=== PATIENT | female | born 1980 | race Two or more races ===

== ENCOUNTER 2023-01-18 09:04 | Inpatient (IN) | payer BC ==
[~2023-01-18] VITALS: Ht 160 cm; Wt 96.2 kg
[~2023-01-18 09:04] MED LIST: PRENATAL + DHA1 EAC1 PO
[2023-01-18 13:23] LABS: RDW 15.6 (10.5-15.0)
[2023-01-18 13:26] LABS: HEMOGLOBIN 10.9 g/dL (12.0-18.0); MCH 28.6 (27-36); MCHC 32.8 g/dl (30-36); MCV 87.1 fl (81-99); RBC 3.8 M/ul (4.3-5.7)
[2023-01-18 14:00] LABS: ABO O; ANTIBODY SCREEN NEGATIVE; RH POSITIVE
[2023-01-18 14:32] VITALS: BP 133/67
[2023-01-18 14:35] LABS: INFLUENZA B NAA NEGATIVE (NEGATIVE); RESPIRATORY SYNCYTIAL VIR NAA NEGATIVE (NEGATIVE)
--- NOTE | 2023-01-18 18:10 | PR ---
[facility] [address] [place], [place] [address] Signed Progress Notes IP Datetime Report Generated by CPN: 01/18/2023 18:09 PROGRESS NOTES: [id number] Impression: Normal Progression of Labor Procedures: Artificial ROM; Sterile Vag Exam Plan: Continue Present Management VITAL SIGNS: [id number] Vital Signs: Reviewed; Within Normal Limits EXAM: [id number] Dilatation: 4.0 Effacement: 70 Contractions: q 5 min, irreg MEMBRANES: [id number] Comments: Still comfortable but good change in her cervix. status has been very reassuring though baseline quite high at this time. Will continue close observation. FETUS A: [id number] FHR Baseline: 145 Variability: Moderate 6-25bpm Accelerations: 15X15 Decelerations: None FHR Category: Category II Presentation: Vertex FETUS B: [id number] Signing Physician: Magui Jurado MD Copies: ~ *Electronically Signed* 01/18/23 1809 MAGUI JURADO MD PATIENT NAME: ESTEFANY KELLY PROGRESS NOTE DATE OF : 80 PHYSICIAN: MAGUI JURAOD MD RPT #: [id number] REPORT IS CONFIDENTIAL AND NOT TO BE RELEASED WITHOUT AUTHORIZATION
[2023-01-18 20:28] LABS: AMPHETAMINES, URINE NEGATIVE (NEGATIVE); BARBITURATES, URINE NEGATIVE (NEGATIVE); BENZODIAZEPINE, URINE NEGATIVE (NEGATIVE); BUPRENORPHINE, URINE NEGATIVE (NEGATIVE); CANNABINOID, URINE NEGATIVE (NEGATIVE); COCAINE, URINE NEGATIVE (NEGATIVE); ECSTASY, URINE NEGATIVE (NEGATIVE); FENTANYL, URINE NEGATIVE (NEGATIVE); METHADONE, URINE NEGATIVE (NEGATIVE); OPIATES, URINE NEGATIVE (NEGATIVE); OXYCODONE, URINE NEGATIVE (NEGATIVE); PHENCYCLIDINE, URINE NEGATIVE (NEGATIVE)
--- NOTE | 2023-01-18 23:21 | PR ---
[facility] [address] [place], [place] [address] Signed Progress Notes IP Datetime Report Generated by CPN: 01/18/2023 23:21 PROGRESS NOTES: [id number] Impression: Reassuring Heart Rate Procedures: Intrauterine Pressure Catheter; Scalp Electrode Plan: Augmentation VITAL SIGNS: [id number] Vital Signs: Reviewed; Within Normal Limits EXAM: [id number] Dilatation: 4.0 Effacement: 70 Contractions: difficult to monitor MEMBRANES: [id number] Comments: No progress. Will place IUPC and FSE and begin pitocin augmentation. FETUS A: [id number] FHR Baseline: 145 Variability: Moderate 6-25bpm Accelerations: 15X15 Decelerations: None FHR Category: Category I Presentation: Vertex FETUS B: [id number] Signing Physician: Magui Jurado MD Copies: ~ *Electronically Signed* 01/18/23 232 MAGUI JURADO MD PATIENT NAME: ESTEFANY KELLY PROGRESS NOTE DATE OF : 80 PHYSICIAN: MAGUI JURADO MD RPT #: [id number] REPORT IS CONFIDENTIAL AND NOT TO BE RELEASED WITHOUT AUTHORIZATION
[2023-01-20 05:51] LABS: HEMATOCRIT 27.9 % (35.0-50.0); HEMOGLOBIN 9.3 g/dL (12.0-18.0); MCH 28.7 (27-36); MCHC 33.4 g/dl (30-36); MCV 85.8 fl (81-99); RBC 3.26 M/ul (4.3-5.7); RDW 15.6 (10.5-15.0)
--- NOTE | 2023-01-20 07:29 | PR ---
[facility] [address] [place] [address] Signed PP Progress Notes Datetime Report Generated by CPDannie: 01/20/2023 07:29 SUBJECTIVE: [id number] Pain: Within Normal Limits Vital Signs: [id number] Vital Signs: Reviewed; Within Normal Limits Cardiovascular: Not Done Respiratory: Not Done Abdomen/Uterus: Abnormal Lochia: Normal Vulva/Perineum: Not Done Breasts: Not Done CVA Tenderness: Not Done Extremities: Normal Incision: Not Applicable Progress: Normal Exam Comments: Fundus firm, NT @ U-2. H/H 9.3/27.9, WBC 11.6, plat 168k IMPRESSION/PLAN/PROCEDURES: [id number] Impression: Normal Progression Plan: Discharge Procedures: None Progress Notes: Doing well. She desires discharge. Signing Physician: Magui Jurado MD Copies: ~ *Electronically Signed* 01/20/23728 MAGUI JURADO MD PATIENT NAME: ESTEFANY KELLY PROGRESS NOTE DATE OF : 80 PHYSICIAN: MAGUI JURADO MD RPT #: [id number] REPORT IS CONFIDENTIAL AND NOT TO BE RELEASED WITHOUT AUTHORIZATION
--- NOTE | 2023-01-20 10:31 | NUR ---
PT AND IN GOOD SPIRITS. [facility]. 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 PRAYED FOR GOOD BEGINNINGS AND ONGOING BLESSING.
== END 2023-01-20 11:15 | disposition home or self-care (01) | DRG 807 ==
LOC: FBCO 09:04 → US 09:04 → FBC 12:30
PROVIDERS: ADMIT Obstetrics & Gynecology; ATTEND Obstetrics & Gynecology
PROC: 10E0XZZ Delivery of Products of Conception, External Approach (ICD-10-PCS; principal; 2023-01-19)
PROC: 10907ZC Drainage of Amniotic Fluid, Therapeutic from Products of Conception, Via Natural or Artificial Opening (ICD-10-PCS; 2023-01-19)
PROC: 10H07YZ Insertion of Other Device into Products of Conception, Via Natural or Artificial Opening (ICD-10-PCS; 2023-01-19)
DX: O76 Abnormality in fetal heart rate and rhythm complicating labor and delivery (principal); Z37.0 Single live birth; Z11.52 Encounter for screening for COVID-19; O69.1XX0 Labor and delivery complicated by cord around neck, with compression, not applicable or unspecified; Z3A.38 38 weeks gestation of pregnancy
CPT/HCPCS: 36415; 76815; 76818; 80307; 85027; 86850; 86900; 86901; 87502; A9270; J2590; J7121; U0002